=== PATIENT | female | born 1950 | race Caucasian/White ===

== ENCOUNTER → 2018-12-29 | Outpatient (CLI) | payer MEDICARE, BC ==
[~2018-12-29] MED LIST: ALPR0.25 PO; CALC-112 PO; DOXE10CA PO; ESTR1TAB15 PO; GABA-585 PO; IBUP200T58 PO; LAMO25TA9 PO; LOSA1TAB19 PO; META-21 PO; MONT10TA49 PO; MULT1TAB52 PO; RANI15SY PO; SERT25TA PO; SIMV40TA3 PO; TRAM1TAB4 PO; tylenol pm PO
[2018-12-29 10:40] LABS: BASO # 0.1 x10^3/uL (0.0-0.2); BASO % 1 % (0-3); EOS # 0.2 x10^3/uL (0.0-0.7); EOS % 2 % (0-3); HEMATOCRIT 39.1 % (36.0-47.0); HEMOGLOBIN 13.3 g/dL (12.0-15.5); LYMPH # 2.8 x10^3/uL (1.0-4.8); LYMPH % 28 % (24-48); MEAN CORPUSCULAR HEMOGLOBIN 32 pg (25-35); MEAN CORPUSCULAR HGB CONC 34 g/dL (31-37); MEAN CORPUSCULAR VOLUME 93 fL (79-100); MONO # 0.7 x10^3/uL (0.0-1.1); MONO % 7 % (0-9); NEUT # 6.1 x10^3/uL (1.8-7.7); NEUT % 62 % (31-73); PLATELET COUNT 312 x10^3/uL (140-400); RED CELL DISTRIBUTION WIDTH 13.4 % (11.5-14.5)
[2018-12-29 11:04] LABS: ALBUMIN 3.7 g/dL (3.4-5.0); ALBUMIN/GLOBULIN RATIO 1.3 (1.0-1.7); CALCIUM 9.5 mg/dL (8.5-10.1); CREATININE 0.9 mg/dL (0.6-1.0); GFR 62.5; POTASSIUM 4.1 mmol/L (3.5-5.1); TOTAL BILIRUBIN 0.4 mg/dL (0.2-1.0); TOTAL PROTEIN 6.6 g/dL (6.4-8.2)
== END | disposition home or self-care (01) ==
LOC: SURGPAT 10:10
PROVIDERS: ATTEND Neurological Surgery
DX: Z01.818 Encounter for other preprocedural examination (principal); M48.061 Spinal stenosis, lumbar region without neurogenic claudication
CPT/HCPCS: 36415; 80053; 85025; 87641

== ENCOUNTER → 2019-01-09 | Day surgery (SDC) | payer MEDICARE, BC ==
--- NOTE | 2019-01-08 16:02 | HP ---
ADMIT DATE: 01/09/2019. PREOPERATIVE HISTORY AND PHYSICAL DATE OF SURGERY: 01/09/2019. HISTORY OF PRESENT ILLNESS: The patient is a pleasant 68-year-old who is having difficulty with low back pain and bilateral posterior thigh and leg discomfort. She also notices pain, which can radiate into the left anterior thigh and leg. Her problems have been present for about 6 months. It began spontaneously. She rates her pain as a 3-4/10 now. She says lifting or standing increase her pain. She has been taking Advil, Skelaxin and tramadol. She has had epidural steroid injections without significant benefit. She does not notice weakness. The principal problem is pain. She has had previous lumbar surgery at L4-L5 and L5-S1 on the right and did well from that. PAST MEDICAL HISTORY: Blood clots, cancer, hypertension. PAST SURGICAL HISTORY: LMD of L4-L5 and L5-S1 on the right in 2011, nasal flap surgery in 2017, skin cancer removal in 2017, 2018 and 2019. FAMILY HISTORY: Cancer and hypertension. SOCIAL HISTORY: Retired. . Rarely exercises. Denies substance abuse. Denies tobacco use. Denies alcohol consumption. ALLERGIES: No known drug allergies. CURRENT MEDICATIONS: Lamictal, estradiol, ranitidine, simvastatin, Neurontin, metaxalone, doxepin, losartan, montelukast, tramadol, Tylenol 1 daily, Advil, Skelaxin. REVIEW OF SYSTEMS: A 12-point review of systems was obtained and is noncontributory except for that mentioned above. PHYSICAL EXAMINATION: NEUROSURGERY EXAMINATION: GENERAL APPEARANCE: Alert, pleasant, no acute distress. HEAD: Normocephalic and atraumatic. SKIN: Warm and dry, well healed lumbar incision. MUSCULOSKELETAL: Lumbar paraspinal muscle bulk is normal, restricted range of motion of the lumbar spine, [id number] tenderness of the lumbar spine with palpation, normal range of motion of the lower extremities bilaterally. EXTREMITIES: No clubbing, cyanosis or edema. NEUROLOGIC: Alert and oriented x 3, normal recent and remote memory, strength 5/5 in bilateral lower extremities, reflexes were present and symmetric in lower extremities bilaterally, negative straight leg raising bilaterally, normal gait. IMAGING: I reviewed a lumbar MRI scan. On that study, the principal abnormalities are at L4-L5 where there is significant lateral recess narrowing, especially with contact of the left L5 nerve root. At L5-S1, there are degenerative changes with retrolisthesis of L5 on S1. ASSESSMENT/PLAN: Most of the pain she is experiencing is in her left leg. She does have compression of the L5 root at L4-L5. I explained to her that I was going to operate and decompress this region to see if this would help her with her pain. She understands the surgery. She understands the rationale for surgery as well as the risks and expected postoperative course and she would like to go ahead. We will make the arrangements. SAM LOMBARDI MD DR: KERMIT/arvind JOB#: [id number] / [id number] JOSE
[~2019-01-09] VITALS: Ht 167.6 cm; Wt 74.0 kg
[~2019-01-09] MED LIST changes: +0.9 % SODIUM CHLORIDE 20 ML VIAL. IJ ONE; +BACITRACIN 50,000 UNIT in IV NORMAL SALINE 1000ML BAG 1,000 ML IRR ONE; +BUPIVACAINE-EPI 0.5%-1:200000 MPF 30 ML VIAL. INJ ONE; +DESFLURANE > 120 MINUTES IH ONE; +DEXAMETHASONE SOD PHOS 20 MG/5 ML VIAL. ONE; +DOCU-109 PO; +FAMOTIDINE 20 MG/2 ML VIAL ONE; +GELATIN SPONGE SIZE 12-7MM SPONGE. ONE; +HYDR-2761 PO; +HYDROcodone/APAP 5/325MG 1 TAB TABLET PO ONE; +HYDROmorphone 2 MG/ML VIAL IV PRN; +IV RINGERS,LACTATED 1000ML 1,000 ML IV SCH; +KETOROLAC 60 MG/2 ML VIAL. ONE; +LIDOCAINE 1% PF 2 ML VIAL. ID PRN; +LIDOCAINE 2% PF 5 ML VIAL. ONE; +MORPHINE SULFATE 2 MG/ML VIAL. IV PRN; +ONDANSETRON PF 4 MG/2 ML VIAL. IV PRN; +ONDANSETRON PF 4 MG/2 ML VIAL. ONE; +PROCHLORPERAZINE 10 MG/2 ML VIAL. IV PRN; +PROPOFOL 20 ML IV ONE; +PROPOFOL 50 ML IV ONE; +PSEU120T9 PO; +REMIFENTANIL 2 MG VIAL. IV ONE; +ROCURONIUM 50 MG/5 ML VIAL. ONE; +SCOPOLAMINE 1.5MG PATCH. TD SCH; +SUCCINYLCHOLINE 200 MG/10 ML VIAL. ONE; +THROMBIN TOPICAL 20,000 UNIT SPRAY.SYRN KIT TP ONE; +ceFAZolin 2GM PREMIX 2 GM/50 ML BAG IV ONE; +diphenhydrAMINE 50 MG/ML VIAL ONE; +ePHEDrine PF IN SALINE 50 MG/10 ML SYRINGE. IV ONE; +fentaNYL PF VIAL 100 MCG/2 ML VIAL IV PRN; +fentaNYL PF VIAL 100 MCG/2 ML VIAL ONE
--- NOTE | 2019-01-09 12:20 | DISCH ---
DISCHARGE INSTRUCTIONS Condition on Discharge Condition on Discharge: Stable Activity After Discharge Activity Instructions for Disc: Activity as tolerated, Avoid exertion Other activity instructions: no driving for a week Bathing Instructions: Shower-keep dressing dry Lifting Instructions after Dis: No heavy lifting, No pulling or pushing, Do not lift >10 pounds Diet after Discharge Additional Diet Restrictions: resume home diet Wound Incision Care Wound/Incision Care: Ice to area for comfort Other wound/incision instructi: may remove dressing in 48 hours if dry then may shower, no soaking Contacting the after DC Call your doctor for: Concerns you may have Follow-Up Follow up with: Dr. Lombardi's nurse in 2 weeks [phone] SAM LOMBARDI MD Jan 09, 2019 12:20
[2019-01-09] MEDS: fentaNYL PF VIAL 100 MCG/2 ML VIAL IV PRN ×2 (12:30→12:50)
[2019-01-09 13:30] VITALS: BP 129/52
--- NOTE | 2019-01-09 17:43 | OP ---
DATE OF SURGERY: 01/09/2019 PREOPERATIVE DIAGNOSES: Lateral recess stenosis and radiculopathy, L4-L5, left. POSTOPERATIVE DIAGNOSES: Lateral recess stenosis and radiculopathy, L4-L5, left. OPERATION PERFORMED: Hemilaminotomy with decompression of dura and nerve root, L4-L5, left. The operation was done with EMG monitoring, SSEP monitoring, fluoroscopy, microscopic dissection. SURGEON: Tommy Lombardi M.D. AUTO GLASS TECHNICIAN: Neha Cloud APRN assisted with the surgery. She assisted with the exposure and microdecompression as well as the closure. OPERATIVE INDICATIONS: The patient is a very pleasant woman who developed severe intractable back and left leg pain. On imaging studies, she had the above-mentioned findings of significant lateral stenosis at L4-L5 on the left and I recommended lumbar microsurgery. I spoke with her about the surgery, the risks, technique and expected postoperative course and she wished to go ahead. DESCRIPTION OF PROCEDURE: Following general endotracheal anesthesia, the patient was positioned prone on the Evgeny frame. Her lumbar region was prepped and draped in standard fashion. ROMAINE hose and AV impulse boots were applied for DVT prophylaxis. The microscope was draped. Fluoroscopy was draped and brought into field. Monitoring was established. Ancef 2 grams were given less than 1 hour prior to initiation of the surgery. Using fluoroscopic guidance, an incision was made directly over the L4-L5 interspace. I dissected down through skin and subcutaneous tissue, reflected the paraspinal muscles, reflected them to the left and then placed a Ford micro disc retractor. I brought in the microscope and using the high speed air drill, I burred down a generous hemilaminotomy. The nerve root was quite compressed by the very thickened ligamentum flavum and I gently peeled this back and off of the nerve root. I then drilled the bone directly over the root and worked out that there was a thin eggshell like amount of bone, which I could then trim away with the 2 mm micro Kerrison performing a partial foraminotomy. I explored carefully. There were few small epidural veins, which were coagulated and I did gently palpate beneath the root to assure that there was no disc issue with nerve compression, which there was not. I did use small amounts of bone wax for any bone bleeding. I irrigated copiously with antibiotic solution. At this point, I had an excellent decompression. The root was very free. I irrigated at this point, then gently retracted and the muscle fell back to the midline. I did coagulate a small amount of hemorrhage in the muscle until there was perfect hemostasis. I closed the fascia with absorbable sutures and subcutaneous tissue as well. The skin was closed with 4-0 subcuticular stitch. The operation went very well and the patient left the operating room in excellent condition. I was quite pleased with the surgery. TOMMY LOMBARDI MD DR: KERMIT/arvind JOB#: [id number] / [id number] JOSE
--- NOTE | 2019-01-13 15:07 | PATHOLOGY ---
[facility] Accession Number: [id number] . 01 Material submitted: . vertebral column - LUMBAR DECOMPRESSION . 01 Clinical history: . Lumbar stenosis . 02 Diagnosis: Segments of fibrocartilaginous, fibroadipose, and skeletal muscle tissue and bone, lumbar decompression: - Degenerative changes of fibrocartilaginous tissue. (JPM:isabelle; 01/13/2019) QMS 01/13/2019 1251 Local . 02 Comment: There is no evidence of an acute inflammatory process or malignancy. . 02 Electronically signed: . Luis Armando Romeo MD, Pathologist NPI- [id number] . 01 Gross description: . Received in formalin labeled "Mansi Mojica, lumbar decompression," are several pieces of glistening, fibrous tissue measuring 4.5 x 3.1 x 1.9 cm in aggregate dimensions, containing small fragments of possible bone. The tissue is submitted representatively in cassette A1, following decalcification. (TSD; 01/09/2019) TOB/TOB 01/09/2019 1732 Local . 02 Pathologist provided ICD-10: M51.36 . 02 CPT . 298572, 702169 Specimen Comment: A courtesy copy of this report has been sent to Specimen Comment: [phone], . Specimen Comment: Report sent to / DR HILTON Specimen Comment: Report sent to Performed at: 01 [facility] [address], [place] [id number] MD Tony Lucas MD Phone: [phone] Performed at: 02 [facility] [address] [place], [place] [id number] MD Luis Armando Romeo MD Phone: [phone]
== END ==
LOC: SURG 07:17
PROVIDERS: ATTEND Neurological Surgery
DX: M48.061 Spinal stenosis, lumbar region without neurogenic claudication (principal); M54.16 Radiculopathy, lumbar region; I10 Essential (primary) hypertension; Z85.828 Personal history of other malignant neoplasm of skin
CPT/HCPCS: 63047; 88304; 88311; 97161; A7015; J0171; J0330; J0696; J0780; J1100; J1200; J1885; J2001; J2405; J2704; J3010; J3490; J7030; 76000

== ENCOUNTER → 2020-04-18 | Outpatient (CLI) | payer MEDICARE, BC ==
[2019-01-09 13:30] VITALS: BP 129/52
[~2020-04-18] MED LIST changes: -0.9 % SODIUM CHLORIDE 20 ML VIAL. IJ ONE; -BACITRACIN 50,000 UNIT in IV NORMAL SALINE 1000ML BAG 1,000 ML IRR ONE; -BUPIVACAINE-EPI 0.5%-1:200000 MPF 30 ML VIAL. INJ ONE; -DESFLURANE > 120 MINUTES IH ONE; -DEXAMETHASONE SOD PHOS 20 MG/5 ML VIAL. ONE; +ESTR-113 PO; -ESTR1TAB15 PO; -FAMOTIDINE 20 MG/2 ML VIAL ONE; -GELATIN SPONGE SIZE 12-7MM SPONGE. ONE; -HYDROcodone/APAP 5/325MG 1 TAB TABLET PO ONE; -HYDROmorphone 2 MG/ML VIAL IV PRN; +IOHEXOL 180 MG/ML 10 ML VIAL. IT ONE; -IV RINGERS,LACTATED 1000ML 1,000 ML IV SCH; -KETOROLAC 60 MG/2 ML VIAL. ONE; +LIDOCAINE 1% Multi-Dose 20 ML VIAL. ID ONE; -LIDOCAINE 1% PF 2 ML VIAL. ID PRN; -LIDOCAINE 2% PF 5 ML VIAL. ONE; +LORA10TA68 PO; -MORPHINE SULFATE 2 MG/ML VIAL. IV PRN; +MULT-445 PO; -MULT1TAB52 PO; -ONDANSETRON PF 4 MG/2 ML VIAL. IV PRN; -ONDANSETRON PF 4 MG/2 ML VIAL. ONE; -PROCHLORPERAZINE 10 MG/2 ML VIAL. IV PRN; -PROPOFOL 20 ML IV ONE; -PROPOFOL 50 ML IV ONE; -REMIFENTANIL 2 MG VIAL. IV ONE; -ROCURONIUM 50 MG/5 ML VIAL. ONE; -SCOPOLAMINE 1.5MG PATCH. TD SCH; +SIMV40TA18 PO; -SIMV40TA3 PO; -SUCCINYLCHOLINE 200 MG/10 ML VIAL. ONE; -THROMBIN TOPICAL 20,000 UNIT SPRAY.SYRN KIT TP ONE; -ceFAZolin 2GM PREMIX 2 GM/50 ML BAG IV ONE; -diphenhydrAMINE 50 MG/ML VIAL ONE; -ePHEDrine PF IN SALINE 50 MG/10 ML SYRINGE. IV ONE; -fentaNYL PF VIAL 100 MCG/2 ML VIAL IV PRN; -fentaNYL PF VIAL 100 MCG/2 ML VIAL ONE
--- NOTE | 2020-04-18 12:55 | KCIC ---
Lumbar myelogram 04/18/2020 Clinical History: Low back pain which radiates down the right leg. Technique: After the risks and benefits of the procedure were explained to the patient, written infor med consent was obtained. The patient was placed prone on the fluoroscopy table and the lower back wa s prepped and draped in sterile fashion. 1% lidocaine was used as a local anesthetic. Under fluorosco pic guidance, the thecal sac of the lumbar cistern was punctured at the L2-L3 level using a 25-gauge Judd needle. After confirming clear CSF return, 15 cc of Omnipaque 180 were injected through the needle into the thecal sac of the lumbar cistern under fluoroscopic guidance. Following this the need le was removed and hemostasis achieved at the puncture site. A sterile bandage was placed on the skin puncture site. AP, bilateral oblique, lateral and standing neutral, flexion and extension lateral di gital radiographs of the lumbar spine were obtained. Following this the patient was taken to CT wher e a CT scan of the lumbar spine was performed. This will be reported separately. Following the examin ations the patient was sent home with an instruction sheet. The patient tolerated the procedure well and there were no immediate complications. The total fluoroscopic time for this procedure was 1 minut e 7 seconds. 9 digital spot radiographs of the lumbar spine were obtained. Findings: Minimal S-shaped curvature of the thoracolumbar spine is seen. Degenerative changes consist ing of vertebral endplate sclerosis and minimal anterior and posterior vertebral body osteophyte form ation are seen throughout the lumbar disc spaces. Marked disc space narrowing is seen at L5-S1. A mil d anterior extradural defect is seen upon the contrast column at L3-4. A mild to moderate anterior ex tradural defect is seen upon the contrast column at L4-5. There is no evidence of complete block of c ontrast at any level involving the lumbar vertebrae. Degenerative changes are seen involving the face t joints throughout the mid and lower lumbar disc spaces. The alignment of the lumbar vertebrae is ma intained on the flexion and extension radiographs. Atherosclerotic calcification of the abdominal aor ta and its branches is noted. Impression: Degenerative changes are seen throughout the thoracic spine as discussed above. A mild an terior extradural defect is seen upon the contrast column at L3-4. A mild to moderate anterior extrad ural defect is seen upon the contrast column at L4-5. Electronically signed by: Amilcar Barajas MD (04/18/2020 12:53 PM) [id number]
--- NOTE | 2020-04-18 13:29 | KCIC ---
CT lumbar myelogram 04/18/2020 Clinical History: Low back pain which radiates down the right leg. Technique: This study was performed after a lumbar myelogram, contiguous, 0.625 mm axial sections wer e obtained through the lumbar spine. 3 mm sagittal, coronal and axial reconstructed images were obtai howard. Findings: Comparison is made to the patient's outside MRI of the lumbar spine dated 12/13/2010. Additi onal comparison is made to the patient's lumbar myelogram performed earlier today. The sagittal and coronal reconstructed images demonstrate very mild S-shaped curvature of the thoraco lumbar spine. Degenerative changes consisting of vertebral endplate sclerosis and minimal anterior an d posterior vertebral body osteophyte formation are seen throughout the lumbar disc spaces. Marked di sc space narrowing is seen at L5-S1. Atherosclerotic calcification of the abdominal aorta and its bra nches is noted. At the L1-2 disc space there is a mild generalized disc bulge. Superimposed on this disc bulge is a r ight paracentral focal disc protrusion. This measures 2 mm in AP diameter. Degenerative changes are s een involving the facet joints bilaterally. There is mild ligamentum flavum hypertrophy bilaterally. These findings do not result in significant central spinal canal or neural foraminal stenosis. At the L2-3 disc space there is a minimal generalized disc bulge. Degenerative changes are seen invol ving the facet joints bilaterally. There is mild ligamentum flavum hypertrophy bilaterally. Superimpo sed on this disc bulge is a central/right paracentral focal disc osteophyte complex. This measures 2 mm in AP diameter. Degenerative changes are seen involving the facet joints bilaterally. There is mil d ligamentum flavum hypertrophy bilaterally. These findings do not result in significant central spin al canal or neural foraminal stenosis. At the L3-4 disc space there is a minimal generalized disc bulge. Degenerative changes are seen invol ving the facet joints bilaterally. There is mild ligamentum flavum hypertrophy bilaterally. These fin dings when combined do not result in significant central spinal canal or neural foraminal stenosis. At the L4-5 disc space, the patient is post left hemilaminotomy. There is a mild to moderate generali zed disc bulge which is eccentric to the left. Degenerative changes are seen involving the facet join ts bilaterally. These findings result in mild to moderate left greater than right central spinal rolando l stenosis. No neural foraminal stenosis is seen. At the L5-S1 disc space there is a minimal generalized disc bulge. Degenerative changes are seen invo lving the facet joints bilaterally. These findings do not result in significant central spinal canal stenosis. Mild bilateral neural foraminal stenosis is seen. IMPRESSION: 1. Post left hemilaminotomy at L4-5. 2. The changes of degenerative disc disease are seen involving the lumbar spine. These findings resul t in mild to moderate left greater than right central spinal canal stenosis at L4-5. Mild bilateral n eural foraminal stenosis is seen at L5-S1. Electronically signed by: Amilcar Barajas MD (04/18/2020 1:26 PM) [id number]
== END | disposition home or self-care (01) ==
LOC: KCIC 07:56
PROVIDERS: ATTEND Neurological Surgery
DX: M47.26 Other spondylosis with radiculopathy, lumbar region (principal); M51.16 Intervertebral disc disorders with radiculopathy, lumbar region; M48.061 Spinal stenosis, lumbar region without neurogenic claudication; I70.0 Atherosclerosis of aorta; Z88.2 Allergy status to sulfonamides; Z88.8 Allergy status to other drugs, medicaments and biological substances
CPT/HCPCS: 62304; 72132; J3490; Q9965

== ENCOUNTER → 2020-04-22 | Outpatient (CLI) | payer MEDICARE, BC ==
[2019-01-09 13:30] VITALS: BP 129/52
[~2020-04-22] MED LIST changes: -IOHEXOL 180 MG/ML 10 ML VIAL. IT ONE; -LIDOCAINE 1% Multi-Dose 20 ML VIAL. ID ONE
--- NOTE | 2020-04-22 09:51 | PDOC1 ---
INITIAL PAIN CONSULT DATE OF SERVICE: DOS: DATE: 04/22/20 TIME: 09:44 CHIEF COMPLAINT: Chief Complaint: Low back and bilateral lower extremity pain HISTORY OF PRESENT ILLNESS: 69-year-old female presents history of pain in the low back bilateral lower extremities for many years worse over the past year and a half status post lumbar laminectomy times 06/04/2012 and 2016 with good results initially but the pain returning down the bilateral lower extremities and low back. Patient reports worse with walking standing changing position especially getting in and out of the car and with prolonged standing. Patient reports has had epidural injections in November and December 2019 which were very minimal and improving any pain for more than a day or so is also taking tramadol Aleve cyclobenzaprine which helps mildly as does the tramadol occasionally. Patient reports the pain is still present in the low back and the bilateral lower extremities mostly posterior lateral thigh lateral anterior thighs anterior medial thighs medial and posterior lower legs patient ports is constant sharp stabbing throbbing burning as well. Patient rates her disability rating 0-10 10 being the worst is a 3 with him home responsibilities recreation social activity sexual behavior self-care and life support activities 0 with occupational activities. Patient did have a recent myelogram and MRI scan of the lumbar spine showing a post left hemilaminotomy at L4-5 with degenerative disc disease left greater than right central spinal stenosis at L4-5 bilateral neuroforaminal stenosis L5-S1 degenerative changes mild anterior extradural defect upon the contrast column at L3-4 mild to moderate anterior extradural defect seen upon the contrast column at L4-5. Patient is recently seen her neurosurgeon who is not recommending any further surgery at this time. Patient reports the pain awakens her from sleep release once or twice a night does not affect her bowel bladder control or her ability to walk more than about 10 minutes it does increase the pain and cause significant fatigability in the right greater than left leg. PAST MEDICAL HISTORY: PMH: Hypertension, skin cancers, cataracts PREVIOUS SURGERIES: Past Surgical Hx: Bladder repair 2019, skin cancer removed 2016, lumbar laminectomy 2012 in 2016, tonsillectomy, bilateral cataract extraction, hysterectomy CURRENT MEDICATIONS: Current Meds: Active Scripts Medications Dose Route/Sig Max Daily Dose Days Date Category Claritin (Loratadine) 10 Mg Tablet 1 Tab PO DAILY 30 04/22/20 Reported Multivitamins (Multivitamin) 1 Each Tablet 1 Tab PO DAILY 12/29/18 Reported Xanax (Alprazolam) 0.25 Mg Tablet 0.5 Tab PO DAILY PRN 12/29/18 Reported Citracal + D Er Tablet (Calcium Carb & Cit/Vitamin D3) 1 Each Tablet.er 1 Tab PO DAILY 12/29/18 Reported Ranitidine Hcl 15 Mg/1 Ml Syrup 75 Mg PO BID 12/29/18 Reported Zoloft (Sertraline Hcl) 25 Mg Tablet 25 Mg PO BID 12/29/18 Reported [tylenol pm] 2 Tab PO HS PRN 12/29/18 Reported Gabapentin (Gabapentin) 100 Mg Capsule 100 Mg PO DAILY 12/29/18 Reported Skelaxin (Metaxalone) 800 Mg Tablet 800 Mg PO BID PRN 12/29/18 Reported Montelukast Sodium Tablet (Montelukast Sodium) 10 Mg Tablet 10 Mg PO HS 12/29/18 Reported Losartan-Hctz 50-12.5 Mg Tab (Losartan/Hydrochlorothiazide) 1 Each Tablet 1 Tab PO DAILY 12/29/18 Reported Estradiol 1 Mg Tablet 1 Tab PO DAILY 12/29/18 Reported Simvastatin 40 Mg Tablet 1 Tab PO QHS 12/29/18 Reported Doxepin Hcl 10 Mg Capsule 10 Mg PO BID 12/29/18 Reported Lamotrigine 25 Mg Tablet 1 Tab PO TID 12/29/18 Reported Tramadol-Acetaminophn 37.5-325 (Tramadol Hcl/Acetaminophen) 1 Each Tablet 1 Tab PO DAILY PRN 12/29/18 Reported ALLERGIES; Allergies: Coded Allergies: cefdinir (Verified Adverse Reaction, Intermediate, vomiting, 04/22/20) nitrofurantoin (Verified Adverse Reaction, Intermediate, vomiting, 04/22/20) sulfamethoxazole (Verified Adverse Reaction, Intermediate, vomiting, 04/22/20) trimethoprim (Verified Adverse Reaction, Intermediate, vomiting, 04/22/20) FAMILY HISTORY: Family Hx: Skin cancers and breast cancer SOCIAL HISTORY: Social Hx: Patient has not drink alcohol does not smoke or use any illegal illicit recreational drugs is very lives with her spouse lives locally in [facility] REVIEW OF SYSTEMS: ROS: Positive for those items mentioned in history of present illness, all systems are reviewed, otherwise negative, is complete full and well-documented on patient's chart PHYSICAL EXAM: VS: Blood pressure is 117/51 pulse 75 respirations 18 temperature 94 F height is 5 feet 6 inches weight is 159 pounds PE: PHYSICAL EXAMINATION: GENERAL: The patient is awake, alert, oriented, appropriate, very pleasant demeanor HEENT: Shows normocephalic, well-healed surgical scarring from skin graft over patient's nose. Extraocular movements are intact and symmetrical. Oral cavity: Mucous membranes moist and pink. Dentition is intact. NECK: Shows anterior throat supple without palpable lymphadenopathy noted. Swallow reflex symmetrical. CHEST: Shows normal on inspection. Breath sounds are clear bilaterally, no rales rhonchi or wheezes auscultated. HEART: Shows S1, S2 clear. No murmurs auscultated. ABDOMEN: Soft, nontender, nondistended, obese. No palpable organomegaly is noted. No rebound or guarding demonstrated. BACK: Shows spine grossly in the midline. Normal-appearing cervical lordotic curvature. There is slightly increased thoracic kyphosis, some minor flattening of the lumbar lordotic curvature. Well-healed midline surgical scarring is noted. Lumbar paraspinous muscles show symmetrical on inspection, on palpation shows some moderate tenderness diffusely throughout the upper, middle and lower distribution of the paraspinous muscles bilaterally and also into the lower thoracic paraspinous musculature, firm and tender, but without specific trigger points, without radiation of pain. The patient has good rotational motion of the lumbar spine, both laterally as well as extension and flexion without significant difficulty. No tenderness over the spinous processes, but mild tenderness over the right posterior superior iliac spine and mild tenderness over the left. EXTREMITIES: Lower extremities show deep tendon reflexes 1+ in the patellar and tendo calcaneus tendons. Motor exam is 4 on a scale of 5 with right dorsiflexion, extension, quadriceps and hamstring flexion and 5/5 on the left. Peripheral pulses are 1+ posterior tibial. No peripheral edema is noted bilaterally. Lower extremities are warm and dry to touch, equal in color and appearance. Straight leg raise noted to be positive on the right about 45 degrees, left side is negative. Gaenslen's and Kian's maneuvers are negative as well. The patient is able to stand, stand on her toes without significant difficulty or loss of balance walking with this normal-appearing gait does not appear to favor the right or left lower extremity significantly not use any assistive devices to ambulate. SKIN: Shows warm and dry, good turgor. No edema. No sores, rashes or bruising throughout. IMPRESSION: Impression: 69-year-old female with 1/2-year history pain low back bilateral lower extremities right greater than left. Status post hemilaminotomy x2 L4-5 Myelogram lumbar spine as noted Hypertension Skin cancers Plan: Options were discussed with the patient including conservative medical management continued physical therapies interventional techniques and she would like to pursue interventional techniques. We discussed a spinal cord stimulator trial. Using description as well as anatomical model to describe the procedure in process. Patient is interested and would like to proceed. We will have patient see psychology first for clearance for her implantable devices and proceed with spinal cord stimulator trial placement once preauthorization is obtained. AUDREY PEREZ MD Apr 22, 2020 09:51
== END | disposition home or self-care (01) ==
LOC: PNCL 07:56
PROVIDERS: ATTEND Anesthesiology
DX: M54.5 Low back pain (principal); M79.605 Pain in left leg; M79.604 Pain in right leg; Z79.899 Other long term (current) drug therapy; Z98.890 Other specified postprocedural states; Z88.1 Allergy status to other antibiotic agents; Z88.2 Allergy status to sulfonamides; Z88.8 Allergy status to other drugs, medicaments and biological substances
CPT/HCPCS: 99214; G0463

== ENCOUNTER → 2020-05-10 | Outpatient (CLI) | payer MEDICARE, BC ==
[2019-01-09 13:30] VITALS: BP 129/52
[~2020-05-10] MED LIST changes: +LIDOCAINE 1% PF 2 ML VIAL. ONE
--- NOTE | 2020-05-10 14:32 | PDOC ---
Progress Note - Pain Clinic Date of Service: DOS: DATE: 05/10/20 TIME: 14:24 Diagnosis: Dx: Lumbar radiculopathy with lumbar degenerative disc disease lumbar spinal stenosis and lumbar postlaminectomy syndrome History or Present Illness: HPI: 69-year-old female returns for follow-up after evaluation and preauthorization for spinal cord stimulator temporary leads trial. Patient reports still signi ficant pain in the low back and especially in the right lower extremity but present bilaterally posterior gluteus posterior thigh lateral thigh anterior thigh anterior lower leg calves into the foot especially on the right side. Patient reports that it is aching and sharp shooting in the right and left legs worse on the right burning stabbing in the back constant and severe in the back and the legs bilaterally. Patient rates her pain is a 9 on scale 10 is worse over the past week 9 on average 6 its least and is a 9 today. Patient reports no new motor or sensory deficits pain is worse with walking standing changing positions better with sitting or laying down generally does not awaken her from sleep at night most nights. Patient reports that if it does she gets up and takes Aleve and is able to get back to sleep after about 30 minutes or so. Physical Exam: VS: Blood pressure 145/62 pulse 83 respirations 18 temperature 97.8 F height is 5 foot 6 inches weight is 159 pounds PE: PHYSICAL EXAMINATION: GENERAL: The patient is awake, alert, oriented, appropriate, very pleasant vivi anor HEENT: Shows normocephalic, atraumatic. Extraocular movements are intact and symmetrical. NECK: Shows anterior throat supple without palpable lymphadenopathy noted. Swallow reflex symmetrical. CHEST: Shows normal on inspection. Breath sounds are clear bilaterally. HEART: Shows S1, S2 clear. No murmurs auscultated. ABDOMEN: Soft, nontender, nondistended. No palpable organomegaly is noted. BACK: Shows spine grossly in the midline. Normal-appearing cervical lordotic curvature. There is slightly increased thoracic kyphosis, some flattening of the lumbar lordotic curvature. Well-healed surgical scar is noted in the midli ne. Lumbar paraspinous muscles show symmetrical on inspection, on palpation shows some moderate tenderness diffusely throughout the upper, middle and lower distribution of the paraspinous muscles without specific trigger points, without radiation of pain. The patient has good rotational motion of the lumbar spine, both laterally as well as extension and flexion without significant difficulty. EXTREMITIES: Lower extremities show deep tendon reflexes 1+ in the patellar and tendo calcaneus tendons. Motor exam is 4 on a scale of 5 with right dorsiflexion, extension, quadriceps and hamstring flexion and 5/5 on the left. Peripheral pulses are 1+ posterior tibial. No peripheral edema is noted bilaterally. Lower extremities are warm and dry to touch, equal in color and appearance. SKIN: Shows warm and dry, good turgor. No edema. No sores, rashes or bruising throughout. Procedure: Procedure: Options were discussed with the patient. Patient chart reviews her current medication regimen updated current review of systems updated today as well. We will proceed with spinal cord stimulator temporary leads placement x2 with fluoroscopic guidance. Risks were discussed including but not limited to: Bleeding, infection, possibility of epidural hematoma and subsequent neurological compromise, dural puncture, headaches, spinal cord and/or nerve damage, and poor results regarding pain control. Patient understands and wished to proceed. Patient return to clinic in 1 week for follow-up and removal of spinal cord stimulator temporary leads and assessment at that time. Medication Injected: Med Injected: Under sterile prep and drape patient in prone position using C-arm fluoroscopic guidance patient's lumbar spine was identified and vertebral levels were counted did put external marker on the T8 level. This time the lumbar spine was rev isualized and using 1% lidocaine, the area over the L4-5 level was anesthetized and then using a 14-gauge [employer] Therapeutic[employer] needle with stylette was entered to the epidural space at the L3-4 level using a paramedian approach to the right with preservative-free normal saline [id number]-wo-[id number] technique aspiration was noted to be negative and using direct fluoroscopy visualization spinal cord stimulator lead was then advanced without significant resistance in the midline and confirmed posterior with both AP and lateral views, and advanced to the superior endplate of the T8 vertebral level superimposed with the superior spinal cord stimulator electrode lead. Fluoroscopy was used in a lateral view to verify posterior placement in the epidural space at this point as well. At this time a second lead was then introduced in similar fashion at the L 4-5 level and inserted and in the epidural space at the L3-4 level once again with preservative-free normal saline jpjn-wa-[id number] technique. Aspiration was again noted to be negative and using direct visualization with fluoroscopy second lumbar spinal cord stimulator lead was advanced without significant resistance in the midline with the superior electrode superimposed over the superior endplate of the T9 vertebral body. Lateral visualization was again confirmed with placement of the stimulator in the posterior epidural space. At this time the needles and stylette were removed with intermittent fluoroscopic visualization maintaining that the leads had not moved during this process and this was confirmed. This time 1% lidocaine was used to anesthetize the skin next to the insertion sites of the stimulator wires and using a 2-0 silk were then sutured in place. Mastisol and Tegaderm was then applied as well as reinforcing tape and gauze. Patient was transferred to the recovery area under his own power walking without difficulty and had no immediate complications from the procedure. [facility] Patient will return to the clinic in approximately 1 week for removal of the temporary leads and reassessment of the patient's pain level. Condition at Discharge: Condition at Discharge: Condition at discharge stable, patient tolerated the procedure well and had no complications. AUDREY PEREZ MD May 10, 2020 14:32
== END | disposition home or self-care (01) ==
LOC: PNCL 12:55
PROVIDERS: ATTEND Anesthesiology
DX: M51.16 Intervertebral disc disorders with radiculopathy, lumbar region (principal); M48.061 Spinal stenosis, lumbar region without neurogenic claudication; M96.1 Postlaminectomy syndrome, not elsewhere classified; Z79.899 Other long term (current) drug therapy; Z88.1 Allergy status to other antibiotic agents; Z88.2 Allergy status to sulfonamides; Z88.8 Allergy status to other drugs, medicaments and biological substances
CPT/HCPCS: 63650; C1897; J3490

== ENCOUNTER → 2020-05-17 | Outpatient (CLI) | payer MEDICARE, BC ==
[2019-01-09 13:30] VITALS: BP 129/52
[~2020-05-17] MED LIST changes: -LIDOCAINE 1% PF 2 ML VIAL. ONE
--- NOTE | 2020-05-17 12:54 | PDOC ---
Progress Note - Pain Clinic Date of Service: DOS: DATE: 05/17/20 TIME: 12:49 Diagnosis: Dx: Lumbar radiculopathy with lumbar degenerative disc disease lumbar spinal stenosis and post lumbar laminectomy syndrome History or Present Illness: HPI: 69-year-old female returns follow-up status post spinal cord stimulator temporary leads placed 1 week ago. Patient reports she has done well on some days but not as well on others and her customer contact representative from [employer] has kept us updated on this the last week as well. Patient reports that she has about 8-hour periods where the stimulation is very good and her pain is reduced significantly about 80% and then she will have periods after that where the pain is back to its baseline in the low back and the right greater than left lower extremities. Patient rates is a 10 on scale 10 is worse over the past week 8 on average 8 at its least and is an 8 today patient ports aching sharp burning cramping stabbing still in the low back and leg constant can be severe at times but then has areas of about 8-hour periods where the pain is reduced significantly by about again 80 to 90%. We have changed her programming several times throughout the week and will check her leads placement today as well. Patient reports no new motor or sensory deficits has kept her dressings clean and dry as well. Physical Exam: VS: Blood pressure is 122/69 pulse 79 respirations 16 temperature 97.9 F PE: PHYSICAL EXAMINATION: GENERAL: The patient is awake, alert, oriented, appropriate, very pleasant demeanor HEENT: Shows normocephalic, atraumatic. Extraocular movements are intact and symmetrical. NECK: Shows anterior throat supple without palpable lymphadenopathy noted. Swallow reflex symmetrical. BACK: Shows spine grossly in the midline. Normal-appearing cervical lordotic curvature. There is slightly increased thoracic kyphosis, some minor flattening of the lumbar lordotic curvature. Patient's lumbar spine shows well bandaged spinal cord stimulator temporary leads which are clean and dry no erythema no drainage the gauze is still dry and clean from placement 1 week ago. EXTREMITIES: Lower extremities show deep tendon reflexes 1+ in the patellar and tendo calcaneus tendons. Motor exam is 4 on a scale of 5 with right dorsiflexion, extension, quadriceps and hamstring flexion and 5/5 on the left. Peripheral pulses are 1+ posterior tibial. No peripheral edema is noted bilaterally. Lower extremities are warm and dry to touch, equal in color and appearance. SKIN: Shows warm and dry, good turgor. No edema. No sores, rashes or bruising throughout. Procedure: Procedure: Options discussed with the patient. Patient's old chart was reviewed as her current medication regimen updated current review of systems updated today as well. We will recheck patient's bandages which shows clean and dry no erythema no drainage and reinforced with some tape around the edges where it was coming loose only slightly. Patient will maintain the stimulation leads for another 2 days as the programs were changed and leads were changed on the program today as well. Medication Injected: Med Injected: None Condition at Discharge: Condition at Discharge: Again, leads were reprogrammed and leads changed with programs today and will have patient return an additional 2 days for removal of the temporary spinal cord stimulator leads. Patient was discharged in stable condition. AUDREY PEREZ MD May 17, 2020 12:53
== END | disposition home or self-care (01) ==
LOC: PNCL 11:29
PROVIDERS: ATTEND Anesthesiology
DX: M51.16 Intervertebral disc disorders with radiculopathy, lumbar region (principal); M48.061 Spinal stenosis, lumbar region without neurogenic claudication; M96.1 Postlaminectomy syndrome, not elsewhere classified; Z98.890 Other specified postprocedural states; Z88.8 Allergy status to other drugs, medicaments and biological substances
CPT/HCPCS: G0463

== ENCOUNTER → 2020-05-19 | Outpatient (CLI) | payer MEDICARE, BC ==
[2019-01-09 13:30] VITALS: BP 129/52
--- NOTE | 2020-05-19 14:42 | PDOC ---
Progress Note - Pain Clinic Date of Service: DOS: DATE: 05/19/20 TIME: 14:38 Diagnosis: Dx: Lumbar radiculopathy with lumbar degenerative disc disease lumbar spinal stenosis and lumbar postlaminectomy syndrome History or Present Illness: HPI: 89-year-old female returns to follow-up status post final cord stimulator temporary leads placement 9 days ago. Patient was doing well initially but then the stimulation changed when it was not as significantly improving the pain and we changed the stimulation from one leg to the other 2 days ago with much better results. Patient returns today reporting at least 50 to 60% improvement overall and is very pleased with the amount of relief that she has obtained. Patient understands that this may vary with the permanent system but is very encouraged about pursuing this. Patient reports no new motor or sensory deficits no new bowel or bladder incontinence or other complaints reports that her pain is fairly well controlled when she was laying down and sleeping much better since the trial began and had 1 instance yesterday when she was on her feet quite a bit shopping the pain increased but she was able to change the programs and the pain was subdued fairly significant by about 50%. Patient reports no new changes no new motor or sensory deficits or other complaints. Physical Exam: VS: Pressure is 139/61 pulse 87 respirations 16 temperature 97.6 F PE: PHYSICAL EXAMINATION: GENERAL: The patient is awake, alert, oriented, appropriate, very pleasant demeanor HEENT: Shows normocephalic, atraumatic. Extraocular movements are intact and symmetrical. Patient has a bandaged area on the right forehead from recent skin biopsy. BACK: Shows spine grossly in the midline. Normal-appearing cervical lordotic curvature. There is slightly increased thoracic kyphosis, some minor flattening of the lumbar lordotic curvature. Well-healed surgical scar in the lumbar midline is noted. Lumbar paraspinous muscles show symmetrical on inspection, on palpation shows some moderate tenderness diffusely throughout the upper, middle and lower distribution of the paraspinous muscles bilaterally, but without specific trigger points, without radiation of pain. The patient has good rotational motion of the lumbar spine, both laterally as well as extension and flexion without significant difficulty. EXTREMITIES: Lower extremities show deep tendon reflexes 1+ in the patellar and tendo calcaneus tendons. Motor exam is 4 on a scale of 5 with right dorsiflexion, extension, quadriceps and hamstring flexion and 5/5 on the left. Peripheral pulses are 1+ posterior tibial. No peripheral edema is noted bilaterally. SKIN: Shows warm and dry, good turgor. No edema. No sores, rashes or bruising throughout. Procedure: Procedure: Options were discussed with the patient. Patient will chart reviews her current medication regimen updated current review of systems updated today as well. Patient's stimulator leads were removed under sterile prep and drape with both tips intact sites clean and dry no erythema no drainage no tenderness. Medication Injected: Med Injected: None Condition at Discharge: Condition at Discharge: Options were discussed with the patient and patient would like to pursue a permanent spinal cord stimulator system. We will make these arrangements in the near future. Patient was discharged in a stable condition. AUDREY PEREZ MD May 19, 2020 14:42
== END | disposition home or self-care (01) ==
LOC: PNCL 13:57
PROVIDERS: ATTEND Anesthesiology
DX: M51.16 Intervertebral disc disorders with radiculopathy, lumbar region (principal); M48.061 Spinal stenosis, lumbar region without neurogenic claudication; M96.1 Postlaminectomy syndrome, not elsewhere classified; Z79.899 Other long term (current) drug therapy; Z88.2 Allergy status to sulfonamides; Z88.8 Allergy status to other drugs, medicaments and biological substances
CPT/HCPCS: G0463

== ENCOUNTER → 2021-08-04 | Outpatient (CLI) | payer MEDICARE, BC ==
[2019-01-09 13:30] VITALS: BP 129/52
[~2021-08-04] MED LIST changes: +DEXAMETHASONE PRES.FREE 10 MG/ML VIAL. ONE; +IOHEXOL 180 MG/ML 10 ML VIAL. ONE; +[UNRECOGNIZED DRUG - REMARK]
--- NOTE | 2021-08-04 09:14 | PDOC ---
Progress Note - Pain Clinic Date of Service: DOS: DATE: 08/04/21 TIME: 09:11 Diagnosis: Dx: Lumbar radiculopathy with lumbar degenerative disc disease lumbar spinal stenosis lumbar postlaminectomy syndrome History or Present Illness: HPI: 70-year-old female returns for follow-up last seen May 2020 patient had a spinal cord stimulator placed since her last visit with good results patient reports she is having pain over the past several months and is recently seen her neurosurgeon who is not recommending any surgical revisions or intervention but is recommending more conservative therapies patient reports her stimulator is working well was having some increased pain in the base of the low back and into the bilateral lower extremities lateral thighs anterior thighs medial thighs medial lower legs bilaterally slightly worse on the right than the left. Patient reports no loss of motor function but significant fatigability especially of the lower extremities where she feels she is walk much further than she actually has in her legs do get very tired very easily patient reports initially is doing much better the stimulation has been covering the areas of her pain very well in the low back and legs but again over the past 2 to 3 months the pain is beginning to become more noticeable in the anterior thighs medial thighs medial lower legs patient reports worse with walking standing is significant fatigability rates her pain as a 9 on scale 10 is worse over the past week 8 on average 8 its least is an 8 today. Patient reports no bowel or bladder incontinence no loss of motor function. Physical Exam: VS: Blood pressure is 60/58 pulse 60 respirations 16 temperature 98.2 F height is 5 foot 5 inches weight is 167 pounds. PE: PHYSICAL EXAMINATION: GENERAL: The patient is awake, alert, oriented, appropriate, very pleasant in demeanor HEENT: Shows normocephalic, atraumatic. Extraocular movements are intact and symmetrical. Oral cavity: Mucous membranes moist and pink. Dentition is intact. NECK: Shows anterior throat supple without palpable lymphadenopathy noted. Swallow reflex symmetrical. CHEST: Shows normal on inspection. Breath sounds are clear bilaterally, distant but no rales or rhonchi auscultated. HEART: Shows S1, S2 clear. No murmurs auscultated. ABDOMEN: Soft, nontender, nondistended. No palpable organomegaly is noted. BACK: Shows spine grossly in the midline. Normal-appearing cervical lordotic curvature. There is slightly increased thoracic kyphosis, some flattening of the lumbar lordotic curvature, with well-healed surgical scar again noted. Lumbar paraspinous muscles show symmetrical on inspection, on palpation shows some moderate tenderness diffusely throughout the upper, middle and lower distribution of the paraspinous muscles without specific trigger points, without radiation of pain. The patient has good rotational motion of the lumbar spine, both laterally as well as extension and flexion without significant difficulty. EXTREMITIES: Lower extremities show deep tendon reflexes 1+ in the patellar and tendo calcaneus tendons. Motor exam is 4 on a scale of 5 with right dorsiflexion, extension, quadriceps and hamstring flexion and 5/5 on the left. Peripheral pulses are 1+ posterior tibial. No peripheral edema is noted bilaterally. Lower extremities are warm and dry to touch, equal in color and appearance. SKIN: Shows warm and dry, good turgor. No edema. No sores, rashes or bruising throughout. Procedure: Procedure: Options were discussed with patient. Patient's old chart was reviewed as well as her current medication regimen updated, and current review of systems updated today as well. We will proceed with a lumbar epidural steroid injection today with fluoroscopic guidance. Risks were discussed including but not limited to: Bleeding, infection, possibility of epidural hematoma and subsequent neurolo gical compromise, dural puncture, headaches, spinal cord and/or nerve damage, side effects of steroid medication, and poor results regarding pain control. Patient understands and wished to proceed. Patient will return to the clinic in approximately 2 weeks for follow-up, was counseled as to return appointment, activity level, and side effects to be aware of. Medication Injected: Med Injected: Procedure is lumbar epidural steroid injection under local anesthetic using sterile prep and drape at the L3-4 level using C-arm fluoroscopic guidance in both AP and lateral views medications injected is 120 mg methylprednisolone +10mL preservative-free normal saline and 2 mL contrast- condition at discharge is stable patient tolerated procedure well had no complications. Condition at Discharge: Condition at Discharge: Condition at discharge is stable, paced tolerated procedure well had no complications. AUDREY PEREZ MD Aug 04, 2021 09:14
--- NOTE | 2021-08-04 09:15 | PDOC4 ---
Procedure Note: ICD 10 Code: ICD 10 Code: M54.16 M51.36 M48.06 M96.1 Procedure Note: Patient was consented for lumbar epidural steroid injection with fluoroscopic guidance. Risks were discussed including but not limited to: Bleeding, infection, possibility of epidural hematoma and subsequent neurological compromise, dural puncture, headaches, spinal cord and/or nerve damage, side effects of steroid medication, and poor results regarding pain control. Patient understands and wished to proceed. Procedure is lumbar epidural steroid injection under local anesthetic using sterile prep and drape at the L3-4 level using C-arm fluoroscopic guidance in both AP and lateral views medications injected is 120 mg methylprednisolone +10mL preservative-free normal saline and 2 mL contrast- condition at discharge is stable patient tolerated procedure well had no complications. AUDREY PEREZ MD Aug 04, 2021 09:15
== END | disposition home or self-care (01) ==
LOC: PNCL 08:11
PROVIDERS: ATTEND Anesthesiology
DX: M51.16 Intervertebral disc disorders with radiculopathy, lumbar region (principal); M48.061 Spinal stenosis, lumbar region without neurogenic claudication; M96.1 Postlaminectomy syndrome, not elsewhere classified; Z79.899 Other long term (current) drug therapy; Z88.8 Allergy status to other drugs, medicaments and biological substances
CPT/HCPCS: 62323; J1100; Q9965

== ENCOUNTER → 2021-08-18 | Outpatient (CLI) | payer MEDICARE, BC ==
[2019-01-09 13:30] VITALS: BP 129/52
--- NOTE | 2021-08-18 10:56 | PDOC ---
Progress Note - Pain Clinic Date of Service: DOS: DATE: 08/18/21 TIME: 10:53 Diagnosis: Dx: Lumbar radiculopathy lumbar degenerative disease lumbar spinal stenosis with lumbar postlaminectomy syndrome History or Present Illness: HPI: 70-year-old female returns for follow-up status post lumbar epidural steroid injection. Patient reports about 50% improvement for about 2 and half weeks pain returning and now is some on the left side which is new for her she is always had pain on the right side only about but has some pain in the left side now in the lateral thigh and anterior thigh but only occasionally patient reports is not there constantly like the right side is in the right side was doing much better she was increase her activity with greater distance walking doing household activities travel with greater ease and comfort sleeping better at night patient reports still better at night and laying down or sitting as well as standing walking massive significant fatigability in both legs when she first gets up in the morning after about an hour or so this subsides but is never gone and the right side is significantly worse than the left but not present bilaterally patient reports her pain is a 7 on scale 10 is worse over the past week 4 on least and 6 at its average is a 5 today patient describes as cramping and sharp in the back shooting in the legs on and off in intensity again much worse on the right side than left but significantly improved since her last visit. Patient reports no bowel or bladder incontinence. Physical Exam: VS: Blood pressure is 120/59 pulse 64 respirations 18 temperature 98.1 F height is 5 foot 5 inches weight is 168 pounds. PE: PHYSICAL EXAMINATION: GENERAL: The patient is awake, alert, oriented, appropriate, very pleasant demeanor HEENT: Shows normocephalic, atraumatic. Extraocular movements are intact and symmetrical. Oral cavity: Mucous membranes moist and pink. Dentition is intact. NECK: Shows anterior throat supple without palpable lymphadenopathy noted. Swallow reflex symmetrical. CHEST: Shows normal on inspection. Breath sounds are clear bilaterally. HEART: Shows S1, S2 clear. No murmurs auscultated. ABDOMEN: Soft, nontender, nondistended. No palpable organomegaly is noted. BACK: Shows spine grossly in the midline. Normal-appearing cervical lordotic curvature. There is slightly increased thoracic kyphosis, some flattening of the lumbar lordotic curvature, with well-healed surgical scarring. Lumbar paraspinous muscles show symmetrical on inspection, on palpation shows some moderate tenderness diffusely throughout the upper, middle and lower distribution of the paraspinous muscles without specific trigger points, without radiation of pain. The patient has good rotational motion of the lumbar spine, both laterally as well as extension and flexion without significant difficulty. No tenderness over the spinous processes, sacrum or sacroiliac regions. EXTREMITIES: Lower extremities show deep tendon reflexes 1+ in the patellar and tendo calcaneus tendons. Motor exam is 4 on a scale of 5 with right dorsiflexion, extension, quadriceps and hamstring flexion and 5/5 on the left. Peripheral pulses are 1+ posterior tibial. No peripheral edema is noted bilaterally. Lower extremities are warm and dry to touch, equal in color and appearance. SKIN: Shows warm and dry, good turgor. No edema. No sores, rashes or bruising throughout. Procedure: Procedure: Options were discussed with patient. Patient's old chart reviews her current medication regimen updated current review of systems updated today as well. We will proceed with a lumbar epidural steroid injection today with fluoroscopic guidance. Risks were discussed including but not limited to: Bleeding, infectio n, possibility of epidural hematoma and subsequent neurological compromise, dural puncture, headaches, spinal cord and/or nerve damage, side effects of steroid medication, and poor results regarding pain control. Patient understands and wished to proceed. Patient will return to clinic in approximately 2 weeks for follow-up, was counseled as to return appointment, activity level, and side effects to be aware of. Medication Injected: Med Injected: Procedure is lumbar epidural steroid injection under local anesthetic using sterile prep and drape at the L3-4 level using C-arm fluoroscopic guidance in b oth AP and lateral views medications injected is 20 mg dexamethasone +10mL preservative-free normal saline and 2 mL contrast- condition at discharge is stable patient tolerated procedure well had no complications. Condition at Discharge: Condition at Discharge: Condition at discharge is stable, paced tolerated procedure well and had no complications. AUDREY PEREZ MD August 18, 2021 10:56
--- NOTE | 2021-08-18 10:57 | PDOC4 ---
Procedure Note: ICD 10 Code: ICD 10 Code: M54.16 M51.36 M48.06 M96.1 Procedure Note: Patient was consented for lumbar epidural steroid injection with fluoroscopic guidance risks were discussed including but not limited to: Bleeding, infection, possibility of epidural hematoma and subsequent neurological compromise, dural puncture, headaches, spinal cord and/or nerve damage, side effects of steroid medication, and poor results regarding pain control. Patient understands and wished to proceed. Procedure is lumbar epidural steroid injection under local anesthetic using sterile prep and drape at the L3-4 level using C-arm fluoroscopic guidance in both AP and lateral views medications injected is 20 mg dexamethasone +10mL preservative-free normal saline and 2 mL contrast- condition at discharge is stable patient tolerated procedure well had no complications. AUDREY PEREZ MD August 18, 2021 10:57
== END | disposition home or self-care (01) ==
LOC: PNCL 09:49
PROVIDERS: ATTEND Anesthesiology
DX: M51.16 Intervertebral disc disorders with radiculopathy, lumbar region (principal); M48.061 Spinal stenosis, lumbar region without neurogenic claudication; M96.1 Postlaminectomy syndrome, not elsewhere classified; Z79.899 Other long term (current) drug therapy; Z88.8 Allergy status to other drugs, medicaments and biological substances
CPT/HCPCS: 62323; J1100; Q9965